=== PATIENT | male | born 1955 | race Caucasian/White ===

== ENCOUNTER 2017-03-18 08:59 | Observation (INO) | payer BC ==
[2017-03-17 11:33] LABS: BASOPHILS # (AUTO) 0.1 (0.0-0.1); BASOPHILS % 0.7 % (0.0-1.0); EOSINOPHILS # (AUTO) 0.1 (0.0-0.4); EOSINOPHILS % 0.9 % (0.0-6.0); HEMATOCRIT 47.2 % (38.2-49.6); HEMOGLOBIN 15.6 g/dL (14.0-18.0); LYMPHOCYTES # (AUTO) 2.8 (1.0-3.2); LYMPHOCYTES % 27.4 % (18.0-39.1); MEAN CORPUSCULAR HEMOGLOBIN 29.2 pg (28-32); MEAN CORPUSCULAR HGB CONC 33.1 g/dL (31-35); MEAN CORPUSCULAR VOLUME 88.4 fL (81-99); MONOCYTES # (AUTO) 0.7 (0.2-0.8); MONOCYTES % 7.2 % (4.4-11.3); NEUTROPHILS # (AUTO) 6.4 (2.1-6.9); PLATELET COUNT 255 x10e3/uL (140-360); RED BLOOD COUNT 5.34 x10e6/uL (4.3-5.7); RED CELL DISTRIBUTION WIDTH 13.2 % (11.7-14.4)
[2017-03-17 11:37] LABS: INR 0.87; PROTHROMBIN TIME 12.3 seconds (11.9-14.5)
[2017-03-17 11:44] LABS: ANION GAP 14.2 mmol/L (8-16); BLOOD UREA NITROGEN 17 mg/dL (7-26); BUN/CREATININE RATIO 19 (6-25); CALCIUM 9.5 mg/dL (8.4-10.2); CARBON DIOXIDE 28 mmol/L (22-29); CHLORIDE 105 mmol/L (98-107); CREATININE, SERUM 0.91 mg/dL (0.72-1.25); EST GLOMERULAR FILTRATION RATE > 60 ML/MIN (60-); GLUCOSE 98 mg/dL (74-118); POTASSIUM 5.2 mmol/L (3.5-5.1); SODIUM 142 mmol/L (136-145)
--- NOTE | 2017-03-17 11:47 | Diagnostic Imaging Report ---
PROCEDURE: Frontal and lateral views of the chest. COMPARISON: Chest radiograph 10/16/2015. INDICATIONS: PREOPERATIVE CHEST XRAY FOR LUMBAR SPINE SURGERY FINDINGS: Lines/tubes: None. Lungs: The lungs are well inflated. Stable left basilar atelectasis or scarring. There is no evidence of pneumonia or pulmonary edema. Pleura: There is no pleural effusion or pneumothorax. Heart and mediastinum: The heart and the mediastinum are normal. Bones: No acute bony abnormality. IMPRESSION: No acute cardiopulmonary disease. Dictated by: Flex Phelps M.D. on 03/17/2017 at 11:56 Electronically approved by: Flex Phelps M.D. on 03/17/2017 at 11:56
[~2017-03-18] VITALS: Ht 177.8 cm; Wt 93.9 kg
[~2017-03-18 08:59] MED LIST: ACETAMINOPHEN 1000 MG/100 ML 100 ML IV ONE; BACITRACIN 50,000 UNIT VIAL ONE; CEFAZOLIN SOD 1 GM VIAL ONE; CYCLOBENZAPRINE10 MG PO; GELATIN SPONGE SZ 100 ONE; LIDOCAINE 1% W/EPINEPHRINE 20 ML VIAL ONE; LIDOCAINE HCL (LTA) 4 ML SOLN ONE; PAXIL20 MG PO; PREVACID15 M1 PO; THROMBIN FOR SOLN 5,000 UNIT VIAL ONE; ULTRAM50 MG PO; ZOCOR20 MG PO
--- OUTSIDE RECORDS SUMMARY | 2017-03-18 09:01 | XMS REPORT ---
Author Author [facility] Address Unknown Phone Unavailable Care Team Providers Care Eeler Name Role Phone NENITA PAT Unavailable Unavailable Problems This patient has no known problems. Allergies, Adverse Reactions, Alerts This patient has no known allergies or adverse reactions. Medications This patient has no known medications. Results Test Description Test Time Test Comments Text Results Atomic Results Result Comments CHEST 2 VIEWS [place] [address] Patient Name: CURT LUIS MR #: [id number] : 1955 Age/Sex: 61/M Req #: [id number] Adm Physician: Ordered by: NENITA PAT MD Report #: [id number] Location: OR Room/Bed: Procedure: [id number] DX/CHEST 2 VIEWS Exam Date: 03/17/17 Exam Time: 1100 REPORT STATUS: Signed PROCEDURE: Frontal and lateral views of the chest. COMPARISON: Chest radiograph 10/16/2015. INDICATIONS: PREOPERATIVE CHEST XRAY FOR LUMBAR SPINE SURGERY FINDINGS: Lines/ tubes: None. Lungs: The lungs are well inflated. Stable left basilar atelectasis or scarring. There is no evidence of pneumonia or pulmonary edema. Pleura: There is no pleural effusion or pneumothorax. Heart and mediastinum: The heart and the mediastinum are normal. Bones: No acute bony abnormality. IMPRESSION: No acute cardiopulmonary disease. Dictated by: Flex Phelps M.D. on 03/17/2017 at 11:56 Electronically approved by: Flex Phelps M.D. on 03/17/2017 at 11:56 Dictated By: FLEX PHELPS MD [id number] Transcribed By: JANETT on 03/17/17 1156 COPY TO: NENITA PAT MD
[2017-03-18] MEDS ORDERED: MORPHINE SULFATE 5 MG/ML VIAL IM PRN (09:15)
[2017-03-18] MEDS ORDERED: ZOLPIDEM TARTRATE 5 MG TAB PO PRN (09:15)
[2017-03-18] MEDS ORDERED: ONDANSETRON HCL INJ 2 MG/ML VIAL IV PRN (09:15)
[2017-03-18] MEDS ORDERED: HYDROMORPHONE 2MG/ML INJ IV PRN (09:15)
[2017-03-18] MEDS ORDERED: PROMETHAZINE HCL (IM) 25 MG/ML VIAL IM PRN (09:15)
[2017-03-18] MEDS ORDERED: MAGNESIUM/ALUMINUM/SIMETHICONE 30 ML UDC PO PRN (09:15)
[2017-03-18] MEDS ORDERED: ACETAMINOPHEN 325 MG TAB PO PRN (09:15)
[2017-03-18 10:10] VITALS: BP 142/85
[2017-03-18 10:18] VITALS: BP 142/82
[2017-03-18] MEDS: LACTATED RINGER'S 1,000 ML IV SCH ×3 (10:26→19:22)
[2017-03-18] MEDS: CARISOPRODOL 350 MG TAB PO PRN (10:38)
[2017-03-18] MEDS: OXYCODONE/ACETAMINOPHEN 5-325 1 EACH TABLET PO PRN (10:38)
--- NOTE | 2017-03-18 10:54 | Operative Report ---
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 PROCEDURE: Redo right L5-S1 laminotomy, medial facetectomy and microsurgical diskectomy, [address]. ANESTHESIA: General. INDICATIONS: Patient is a man who has previously undergone a right L5-S1 laminotomy and diskectomy by ak, and now presents with a recurrent radiculopathy due to a recurrent L5-S1 disk herniation with superior migration of the extruded disk fragment into the proximal aspect of the right L5 neural foramen. He was taken to the operating room for redo microsurgical diskectomy. PROCEDURE: After induction of anesthesia, the patient was placed on the operating table in the prone position over a Yamil frame. The lumbar region was prepped and draped in a sterile fashion. A preoperative x-ray was obtained. A small midline incision was created precisely overlying his previous scar. The lumbar fascia was opened to the right of midline and dissection was carried out to expose the underlying laminae. An x-ray revealed localization at L4-L5. One level was counted below this segment through the same exposure, and the L5-S1 segment was located. The region of the previous laminotomy was exposed, and the margins of the laminotomy were defined with a curette. The operating microscope was brought in. A high-speed drill equipped with a chidi bur was used to extend the laminotomy slightly superiorly and laterally along the medial aspect of the L5-S1 facet joint. The residual ligamentum flavum was resected. The lateral margin of the dural sac was exposed. The axilla of the L5 nerve root was exposed above the level of the disk space. The herniated disk material came into view in the region of the axilla of the L5 nerve root in the proximal portion of the L5 neural foramen. This was mobilized with a microball probe and grasped with a micropituitary rongeur, and then delivered out as a sizable fragment of disk. the ball probe was used to retrieve several smaller fragments of disk from this region that were individually removed. Excellent decompression of the L5 nerve root was thus achieved. Attention was directed to the disk space. The small opening in the annulus was slightly enlarged with a #11 blade, and several loose fragments of disk were retrieved and removed from the disk space with a micropituitary. The wound was irrigated with Bacitracin solution and closed with 0 and 2-0 Vicryl sutures. The skin was closed with 3-0 Monocryl sutures in a subcuticular fashion. The patient was awakened, extubated and taken to the postanesthesia care in stable condition. No intraoperative complications were encountered. Estimated blood loss was 10 mL. Job#: [id number] RI
[2017-03-18 11:18] VITALS: BP 142/82
[2017-03-18 11:30] VITALS: BP 124/88
[2017-03-18] MEDS: CEFAZOLIN SOD 1 GM VIAL IV SCH ×2 (13:17→21:04)
[2017-03-18] MEDS ORDERED: CEFAZOLIN SOD 1 GM/NS 50ML 50 ML IV SCH (14:00)
[2017-03-18 15:30] VITALS: BP 115/63
[2017-03-18] MEDS ORDERED: LIDOCAINE HCL 2% JELLY 5 ML TUBE ONE (18:29)
[2017-03-18] MEDS ORDERED: PROPOFOL IV EMULSION 10 MG/ML 20 ML VIAL ONE (18:29)
[2017-03-18] MEDS ORDERED: SEVOFLURANE INHAL SOLN 250 ML PEN BTL ONE (18:29)
[2017-03-18] MEDS ORDERED: ONDANSETRON HCL INJ 2 MG/ML VIAL ONE (18:29)
[2017-03-18] MEDS ORDERED: ROCURONIUM BROMIDE 10 MG/ML 5ML VIAL ONE (18:29)
[2017-03-18] MEDS ORDERED: NEOSTIGMINE 5 MG/5ML SYR ONE (18:29)
[2017-03-18] MEDS ORDERED: LIDOCAINE HCL 2% LOCAL INJ 5 ML SDV VIAL INJ ONE (18:29)
[2017-03-18] MEDS ORDERED: GLYCOPYRROLATE INJ 1MG/ 5 ML SYR ONE (18:29)
[2017-03-18] MEDS ORDERED: DEXAMETHASONE SOD PHOS INJ 4 MG/ML VIAL ONE (18:29)
[2017-03-18] MEDS ORDERED: MIDAZOLAM HCL 2 MG/2 ML VIAL ONE (19:07)
[2017-03-18] MEDS ORDERED: FENTANYL CITRATE/PF 100MCG/2 ML INJ ONE (19:07)
[2017-03-18 20:00] VITALS: BP 131/85
[2017-03-19] VITALS: BP 106/69
[2017-03-19] MEDS: CEFAZOLIN SOD 1 GM VIAL IV SCH (05:16)
[2017-03-19] MEDS ORDERED: PANTOPRAZOLE SOD 40 MG TABEC PO SCH ×2 (07:30)
[2017-03-19 08:02] VITALS: BP 106/69
[2017-03-19 08:32] VITALS: BP 116/87
[2017-03-19] MEDS ORDERED: NON-FORMULARY MEDICATION (Lansoprazole (Prevacid) 15 MG) PO SCH (09:00)
[2017-03-19] MEDS ORDERED: PAROXETINE HCL 20 MG TAB PO SCH (09:00)
[2017-03-19] MEDS: OXYCODONE/ACETAMINOPHEN 5-325 1 EACH TABLET PO PRN (09:01)
[2017-03-19] MEDS: CARISOPRODOL 350 MG TAB PO PRN (09:01)
[2017-03-19 11:00] VITALS: BP 140/87
== END 2017-03-19 11:22 | disposition home or self-care (01) ==
LOC: OR 08:59 → IMCU 09:47
PROVIDERS: ADMIT Neurological Surgery; ATTEND Neurological Surgery
DX: M51.17 Intervertebral disc disorders with radiculopathy, lumbosacral region (principal)
CPT/HCPCS: 36415; 63042; 69990; 71020; 72020; 80048; 85025; 85610; 85730; 86850; 86900; 88304; 93005; G0378 ×2; J0690 ×2; J1100; J2001 ×2; J2250; J2405; 71046

== ENCOUNTER 2017-04-13 08:52 | Outpatient (RCR) | payer BC ==
[~2017-04-13 08:52] MED LIST changes: -ACETAMINOPHEN 1000 MG/100 ML 100 ML IV ONE; -BACITRACIN 50,000 UNIT VIAL ONE; -CEFAZOLIN SOD 1 GM VIAL ONE; -GELATIN SPONGE SZ 100 ONE; -LIDOCAINE 1% W/EPINEPHRINE 20 ML VIAL ONE; -LIDOCAINE HCL (LTA) 4 ML SOLN ONE; -THROMBIN FOR SOLN 5,000 UNIT VIAL ONE
== END 2017-04-14 ==
LOC: PT 08:52
PROVIDERS: ATTEND Neurological Surgery
DX: M51.17 Intervertebral disc disorders with radiculopathy, lumbosacral region (principal); M53.86 Other specified dorsopathies, lumbar region; M54.5 Low back pain; M62.81 Muscle weakness (generalized)

== ENCOUNTER 2017-05-13 08:57 | Outpatient (RCR) | payer BC | END 2017-05-15 | LOC: PT 08:57 | PROVIDERS: ATTEND Neurological Surgery | DX: M51.17 Intervertebral disc disorders with radiculopathy, lumbosacral region (principal); M54.5 Low back pain; M53.87 Other specified dorsopathies, lumbosacral region; M62.81 Muscle weakness (generalized) ==

== ENCOUNTER 2017-06-11 08:00 | Outpatient (RCR) | payer BC | END 2017-06-14 | LOC: PT 08:00 | PROVIDERS: ATTEND Neurological Surgery | DX: M51.17 Intervertebral disc disorders with radiculopathy, lumbosacral region (principal); M54.5 Low back pain; M53.87 Other specified dorsopathies, lumbosacral region; M62.81 Muscle weakness (generalized) ==

== ENCOUNTER 2017-06-29 08:00 | Outpatient (RCR) | payer BC | END 2017-07-15 | LOC: PT 08:00 | PROVIDERS: ATTEND Neurological Surgery | DX: M51.17 Intervertebral disc disorders with radiculopathy, lumbosacral region (principal); M53.87 Other specified dorsopathies, lumbosacral region; M54.5 Low back pain; M62.81 Muscle weakness (generalized) ==

== ENCOUNTER 2017-08-10 08:00 | Outpatient (RCR) | payer BC | END 2017-08-14 | LOC: PT 08:00 | PROVIDERS: ATTEND Neurological Surgery | DX: M51.17 Intervertebral disc disorders with radiculopathy, lumbosacral region (principal); M53.87 Other specified dorsopathies, lumbosacral region; M54.5 Low back pain; M62.81 Muscle weakness (generalized) ==